=== PATIENT | female | born 1965 | race Caucasian/White ===

== ENCOUNTER 2017-06-25 19:08 | Emergency (ER) | payer OTHER, SELFPAY ==
[~2017-06-25] VITALS: Ht 167.6 cm; Wt 100.0 kg
[~2017-06-25 19:08] MED LIST: AMBI10TA OR; ATEN50TA2 OR; HYDR25TA6 OR; LISI20TA5 OR; PERC5TAB8 OR; PERC7.5T8 OR; TEGR200T OR
[2017-06-25] MEDS ORDERED: TRAZO50TA FT (19:33)
[2017-06-25] MEDS ORDERED: FAMO20TA PO (19:33)
[2017-06-25] MEDS ORDERED: PREG100CA PO (19:33)
[2017-06-25] MEDS ORDERED: COUM6TAB PO (19:33)
[2017-06-25] MEDS ORDERED: dexameTHASONE 20 MG/5 ML VIAL (J1100) IM ONE (21:15)
[2017-06-25 22:03] LABS: BASO % 0.5 % (0.0-1.0); EOS # 0.2 K/mm3 (0.0-0.50); EOS % 2.7 % (0.0-3.0); LARGE UNSTAINED CELL # 0.1 K/mm3 (0.0-0.4); LARGE UNSTAINED CELL % 1.5 % (0.0-4.0); LYMPH % 25.1 % (24.0-44.0); MEAN CORPUSCULAR HEMOGLOBIN 26.6 pg (27.0-33.0); MEAN CORPUSCULAR HGB CONC 32.2 g/dl (32.0-36.5); MEAN CORPUSCULAR VOLUME 82.8 fl (80.0-96.0); MONO # 0.3 K/mm3 (0.0-0.8); MONO % 4.5 % (0.0-5.0); NEUTROPHILS # 4.9 K/mm3 (1.8-7.7); NEUTROPHILS % 65.7 % (36.0-66.0); PLATELET COUNT, AUTOMATED 437 k/mm3 (150-450); RED CELL DISTRIBUTION WIDTH 16.9 % (11.5-14.5); WHITE BLOOD COUNT 7.4 K/mm3 (4.0-10.0)
[2017-06-25 22:16] LABS: INR 1.69
[2017-06-25 22:32] LABS: ALBUMIN 3.4 GM/DL (3.2-5.2); ALBUMIN/GLOBULIN RATIO 0.71 (1.00-1.93); ALKALINE PHOSPHATASE 125 U/L (45-117); ALT/SGPT 27 U/L (12-78); ANION GAP 8 MEQ/L (8-16); AST/SGOT 15 U/L (15-37); BILIRUBIN,DIRECT < 0.1 MG/DL (0.0-0.2); BILIRUBIN,TOTAL 0.2 MG/DL (0.2-1.0); BLOOD UREA NITROGEN 17 MG/DL (7-18); CALCIUM LEVEL 9.4 MG/DL (8.5-10.1); CARBON DIOXIDE LEVEL 24 MEQ/L (21-32); CHLORIDE LEVEL 108 MEQ/L (98-107); CREATININE FOR GFR 0.97 MG/DL (0.55-1.02); GLOMERULAR FILTRATION RATE > 60.0 (>51); GLUCOSE, FASTING 88 MG/DL (70-105); POTASSIUM SERUM 4.2 MEQ/L (3.5-5.1); SODIUM LEVEL 140 MEQ/L (136-145); TOTAL PROTEIN 8.2 GM/DL (6.4-8.2)
[2017-06-25] MEDS ORDERED: PRED10TA2 PO (23:09)
[2017-06-25] MEDS ORDERED: BENA25TA10 PO (23:11)
[2017-06-25 23:16] VITALS: BP 159/89
== END 2017-06-25 23:23 | disposition home or self-care (01) ==
LOC: M ED 21:17
DX: R21 Rash and other nonspecific skin eruption (principal)
CPT/HCPCS: 80048; 80076; 84443; 85025; 85610; 96372; 99282; J1100